=== PATIENT | female | born 1965 | race Caucasian/White ===

== ENCOUNTER → 2016-05-17 | Outpatient (CLI) | payer BC ==
[~2016-05-17] MED LIST: AUGMENTIN 875 M1 TAB PO; NO HOME MEDICATIONS
== END ==
LOC: BHSO 11:32
DX: F33.42 Major depressive disorder, recurrent, in full remission (principal)

== ENCOUNTER → 2016-06-10 | Outpatient (CLI) | payer BC | LOC: MC.RAD 11:27 | DX: Z12.31 Encounter for screening mammogram for malignant neoplasm of breast (principal) ==

== ENCOUNTER → 2016-11-17 | Outpatient (CLI) | payer BC | LOC: BHSO 11:32 | DX: F33.1 Major depressive disorder, recurrent, moderate (principal) ==

== ENCOUNTER → 2017-03-03 | Outpatient (CLI) | payer BC | LOC: BHSO 11:31 | DX: F41.1 Generalized anxiety disorder (principal) | CPT/HCPCS: G0463 ==

== ENCOUNTER → 2017-05-17 | Outpatient (CLI) | payer BC | LOC: BHSO 11:16 | DX: F33.42 Major depressive disorder, recurrent, in full remission (principal) | CPT/HCPCS: G0463 ==

== ENCOUNTER → 2017-06-07 | Outpatient (CLI) | payer BC | LOC: MC.RAD 07:36 | DX: Z12.31 Encounter for screening mammogram for malignant neoplasm of breast (principal); R92.8 Other abnormal and inconclusive findings on diagnostic imaging of breast ==

== ENCOUNTER → 2017-06-14 | Outpatient (CLI) | payer BC | LOC: MC.RAD 07:20 | DX: R92.2 Inconclusive mammogram (principal) ==

== ENCOUNTER → 2017-07-20 | Outpatient (CLI) | payer BC | LOC: BHSO 11:36 | DX: F41.1 Generalized anxiety disorder (principal) | CPT/HCPCS: G0463 ==

== ENCOUNTER 2017-10-25 12:45 | Outpatient (RCR) | payer BC | END 2018-01-11 | disposition home or self-care (01) | LOC: WSC | DX: M25.511 Pain in right shoulder (principal); M54.41 Lumbago with sciatica, right side; Z79.899 Other long term (current) drug therapy | CPT/HCPCS: G0283-GP ==

== ENCOUNTER → 2017-11-02 | Outpatient (CLI) | payer BC | LOC: BHSO 11:38 | DX: F33.42 Major depressive disorder, recurrent, in full remission (principal) | CPT/HCPCS: G0463 ==

== ENCOUNTER → 2017-12-12 | Outpatient (CLI) | payer BC | LOC: COL.RAD 07:10 | DX: S46.811A Strain of other muscles, fascia and tendons at shoulder and upper arm level, right arm, initial encounter (principal); M75.101 Unspecified rotator cuff tear or rupture of right shoulder, not specified as traumatic; M67.921 Unspecified disorder of synovium and tendon, right upper arm ==

== ENCOUNTER → 2018-04-13 | Outpatient (CLI) | payer BC | LOC: COL.RAD 14:03 | DX: M16.11 Unilateral primary osteoarthritis, right hip (principal) | CPT/HCPCS: J3301; Q9967 ==

== ENCOUNTER → 2018-05-01 | Outpatient (CLI) | payer BC | LOC: BHSO 11:38 | DX: F33.42 Major depressive disorder, recurrent, in full remission (principal) | CPT/HCPCS: G0463 ==

== ENCOUNTER → 2018-07-03 | Outpatient (CLI) | payer BC | LOC: MC.RAD 07:04 | DX: Z12.31 Encounter for screening mammogram for malignant neoplasm of breast (principal) ==

== ENCOUNTER → 2018-10-09 | Outpatient (CLI) | payer BC | LOC: MHCPAIN 12:29 | DX: G89.29 Other chronic pain (principal); M47.817 Spondylosis without myelopathy or radiculopathy, lumbosacral region; M54.16 Radiculopathy, lumbar region; M53.3 Sacrococcygeal disorders, not elsewhere classified | CPT/HCPCS: G0463 ==

== ENCOUNTER → 2019-04-24 | Outpatient (CLI) | payer BC | LOC: BHSO 11:31 | DX: F33.42 Major depressive disorder, recurrent, in full remission (principal) | CPT/HCPCS: G0463 ==

== ENCOUNTER → 2019-10-29 | Outpatient (CLI) | payer BC | LOC: BHSO 11:35 | DX: F33.42 Major depressive disorder, recurrent, in full remission (principal) | CPT/HCPCS: G0463 ==

== ENCOUNTER → 2020-02-28 | Outpatient (CLI) | payer BC | LOC: MC.RAD 07:30 | DX: Z12.31 Encounter for screening mammogram for malignant neoplasm of breast (principal) ==

== ENCOUNTER 2021-10-01 09:15 | Emergency (ER) | payer BC ==
[~2021-10-01] VITALS: Ht 160 cm; Wt 100.0 kg
[2021-10-01 09:29] VITALS: TEMP 98
[2021-10-01 10:42] LABS: COLLECTION METHOD CLEAN CATCH
[2021-10-01 10:45] LABS: BASO % 0.3 % (0.0-2.0); EOS % 0.1 % (0.0-4.0); GRAN # 5.8 K/mm3 (1.4-6.5); HEMATOCRIT 44.7 % (37.0-47.0); HEMOGLOBIN 14.6 g/dl (12.5-16.0); LYMPH # 0.7 K/mm3 (1.2-3.4); LYMPH % 10.1 % (20.0-51.0); MEAN CELL VOLUME 88 fl (80.0-100.0); MEAN CORPUSCULAR HEMOGLOBIN 29 pg (27-31); MEAN CORPUSCULAR HGB CONC 33 g/dl (33.0-37.0); MEAN PLATELET VOLUME 9.7 fl (7.4-10.4); MONO # 0.4 K/mm3 (0.1-0.6); MONO % 6.2 % (1.7-9.3); PLATELET COUNT 286 K/mm3 (130-400); RED BLOOD COUNT 5.09 M/mm3 (4.10-5.30); REDCELL DISTRIBUTION WIDTH-CV 12.3 % (11.5-14.5)
[2021-10-01 10:48] LABS: MUCOUS Present (NOT PRESENT); PH 5 (5-8); URINE APPEARANCE Hazy (CLEAR/HAZY); URINE BACTERIA Rare /hpf (NONE SEEN); URINE BLOOD Negative (NEGATIVE); URINE COLOR Yellow (YELLOW); URINE GLUCOSE Negative (NEGATIVE); URINE KETONE 2+ (NEGATIVE); URINE NITRATE Negative (NEGATIVE); URINE PROTEIN(semi-quant) 1+ (NEGATIVE); URINE RBC 0-2 /hpf (0-2)
[2021-10-01 11:01] LABS: ALANINE AMINOTRANSFERASE 15 U/L (0-55); ALKALINE PHOSPHATASE 94 U/L (40-150); ANION GAP 14 mmol/L (7-16); AST,SGOT 13 U/L (5-34); BILIRUBIN,TOTAL 0.6 mg/dL (0.2-1.2); BLOOD UREA NITROGEN 9 mg/dL (10-20); CALCIUM 9.4 mg/dL (8.4-10.2); CARBON DIOXIDE 24 mmol/L (22-29); CHLORIDE 103 mmol/L (98-107); CREATININE, serum 0.69 mg/dL (0.57-1.11); GLUCOSE 97 mg/dL (70-99); POTASSIUM 4.1 mmol/L (3.5-4.5); SODIUM 141 mmol/L (136-145); TOTAL PROTEIN 7.7 gm/dL (6.2-8.1)
[2021-10-01 11:04] LABS: ACETAMINOPHEN < 1.0 ug/mL (10-30); ALCOHOL(ethanol),MEDICAL < 10 mg/dL (0-10); SALICYLATE < 5.0 mg/dL (15.0-30.0)
[2021-10-01] MEDS ORDERED: ZYBAN150 M1 (11:19)
[2021-10-01] MEDS ORDERED: PRISTIQ25 MG (11:19)
[2021-10-01] MEDS ORDERED: DESYREL 50MG50 MG (11:20)
[2021-10-01] MEDS ORDERED: ZESTRIL 20MG TA20 MG (11:20)
[2021-10-01 11:26] LABS: TRICYCLIC ANTIDEPRESS URINE NEGATIVE
[2021-10-01 14:10] VITALS: BP 144/79; PULSE 79
== END 2021-10-01 14:10 ==
LOC: COL.ER 09:15
PROVIDERS: Emergency Medicine
DX: F43.21 Adjustment disorder with depressed mood (principal); R45.851 Suicidal ideations; Z20.822 Contact with and (suspected) exposure to COVID-19

== ENCOUNTER → 2022-03-15 | Outpatient (CLI) | payer BC ==
[~2022-03-15] MED LIST changes: +ATIVAN 0.50.5 MG/TAB PO; +BRINTELLIX20 PO; +DESYREL 50MG50 MG; +DESYREL 50MG50 MG PO; +PREMPRO 0.3 MG-1 TAB PO; +PRISTIQ25 MG; +ZESTRIL 20MG TA20 MG; +ZYBAN150 M1
== END ==
LOC: COL.RAD 15:35
DX: M25.551 Pain in right hip (principal); R68.89 Other general symptoms and signs
CPT/HCPCS: J3301; Q9967

== ENCOUNTER 2022-04-22 06:47 | Emergency (ER) | payer BC ==
[~2022-04-22] VITALS: Ht 160 cm; Wt 95.5 kg
[~2022-04-22 06:47] MED LIST changes: -ATIVAN 0.50.5 MG/TAB PO; -BRINTELLIX20 PO; -DESYREL 50MG50 MG PO; -PREMPRO 0.3 MG-1 TAB PO
[2022-04-22 06:55] VITALS: TEMP 97.8
[2022-04-22 07:32] LABS: COLLECTION METHOD CLEAN CATCH
[2022-04-22 07:43] LABS: MUCOUS Present (NOT PRESENT); URINE BACTERIA Rare /hpf (NONE SEEN); URINE RBC 0-2 /hpf (0-2)
[2022-04-22 07:53] LABS: URINE APPEARANCE Hazy (CLEAR/HAZY); URINE COLOR Yellow (YELLOW)
[2022-04-22 07:54] LABS: URINE BLOOD TRACE-INTACT (NEGATIVE); URINE GLUCOSE Negative (NEGATIVE); URINE KETONE TRACE (NEGATIVE); URINE PROTEIN(semi-quant) TRACE (NEGATIVE)
[2022-04-22 07:55] LABS: URINE NITRATE Negative (NEGATIVE); URINE UROBILINOGEN 0.2 E.U/dL (0.2-1.0)
[2022-04-22 08:00] LABS: TRICYCLIC ANTIDEPRESS URINE NEGATIVE
[2022-04-22 08:28] LABS: BASO % 0.3 % (0.0-2.0); EOS % 0.1 % (0.0-4.0); GRAN # 7.4 K/mm3 (1.4-6.5); GRAN % 82.2 % (42.2-75.2); HEMATOCRIT 44.5 % (37.0-47.0); HEMOGLOBIN 14.9 g/dl (12.5-16.0); MEAN CELL VOLUME 89 fl (80.0-100.0); MEAN CORPUSCULAR HEMOGLOBIN 30 pg (27-31); MEAN CORPUSCULAR HGB CONC 34 g/dl (33.0-37.0); MEAN PLATELET VOLUME 9.7 fl (7.4-10.4); MONO # 0.5 K/mm3 (0.1-0.6); MONO % 5.8 % (1.7-9.3); PLATELET COUNT 333 K/mm3 (130-400); RED BLOOD COUNT 5.03 M/mm3 (4.10-5.30); REDCELL DISTRIBUTION WIDTH-CV 12.3 % (11.5-14.5)
[2022-04-22 08:41] LABS: ACETAMINOPHEN < 1.0 ug/mL (10-30); ALANINE AMINOTRANSFERASE 12 U/L (0-55); ALCOHOL(ethanol),MEDICAL < 10 mg/dL (0-10); ALKALINE PHOSPHATASE 76 U/L (40-150); ANION GAP 12 mmol/L (7-16); AST,SGOT 11 U/L (5-34); BILIRUBIN,TOTAL 0.7 mg/dL (0.2-1.2); BLOOD UREA NITROGEN 10 mg/dL (10-20); CALCIUM 9.9 mg/dL (8.4-10.2); CARBON DIOXIDE 25 mmol/L (22-29); CHLORIDE 103 mmol/L (98-107); CREATININE, serum 0.78 mg/dL (0.57-1.11); GLUCOSE 113 mg/dL (70-99); POTASSIUM 3.9 mmol/L (3.5-4.5); SALICYLATE < 5.0 mg/dL (15.0-30.0); SODIUM 140 mmol/L (136-145); TOTAL PROTEIN 7.7 gm/dL (6.2-8.1)
[2022-04-22] MEDS ORDERED: BRINTELLIX20 PO (09:58)
[2022-04-22] MEDS ORDERED: ATIVAN 0.50.5 MG/TAB PO (09:59)
[2022-04-22] MEDS ORDERED: PREMPRO 0.3 MG-1 TAB PO (10:02)
[2022-04-22] MEDS ORDERED: DESYREL 50MG50 MG PO (10:08)
[2022-04-22 11:30] VITALS: BP 135/80; PULSE 76
== END 2022-04-22 11:38 | disposition home or self-care (01) ==
LOC: COL.ER 06:47
PROVIDERS: Emergency Medicine
DX: R45.851 Suicidal ideations (principal); F32.A Depression, unspecified; Z79.83 Long term (current) use of bisphosphonates

== ENCOUNTER 2022-05-27 10:29 | Emergency (ER) | payer BC ==
[~2022-05-27] VITALS: Ht 160 cm; Wt 94.1 kg
[~2022-05-27 10:29] MED LIST changes: +ATIVAN 0.50.5 MG/TAB PO; +BRINTELLIX20 PO; +DESYREL 50MG50 MG PO; +PREMPRO 0.3 MG-1 TAB PO
[2022-05-27 13:00] VITALS: BP 135/87; PULSE 86; TEMP 97
== END 2022-05-27 13:00 | disposition home or self-care (01) ==
LOC: COL.ER 10:29
DX: F41.9 Anxiety disorder, unspecified (principal); Z79.899 Other long term (current) drug therapy